=== PATIENT | male | born 1985 | race Caucasian/White ===

== ENCOUNTER → 2016-06-08 | Outpatient (CLI) | payer BC ==
[~2016-06-08] MED LIST: AMX875 PO; CLC150 PO; HYDRELX3 PO
[2016-06-08 14:38] LABS: DAYS OF ABSTINENCE 5; METHOD OF COLLECTION MASTURBATION; SEMEN COLOR GRAY OR GRAY-WHITE (GRY/GRYWHTE); SEMEN TIME OF COLLECTION 1245; TYPE OF SPECIMEN CONTAINER STERILE CUP
[2016-06-08 14:41] LABS: SPERM VIABILITY STAIN NOT INDICATED % (>58%)
--- NOTE | 2016-06-09 09:23 | CODING QUERY NO DIAGNOSIS ---
TREATMENT RENDERED WITHOUT A DIAGNOSIS 85 To promote full compliance with coding requirements relating to patient care, physician participation is requested in all cases of drivability technician uncertainty. Please assist us with providing a diagnosis/symptom for the test(s) below: A diagnosis/symptom was not documented on your Order. A valid diagnosis/symptom is required to bill all insurances. Please remember that we are unable to code a diagnosis of rule out, probable, possible, questionable, or suspected. DOS 06/08/16 Tests that require a diagnosis: * SEMEN ANALYSIS DIAGNOSIS: Provider Signature: Date: Thank you [employer] Once completed, please kindly fax back to [phone] For questions please call [phone]
== END | disposition home or self-care (01) ==
LOC: C.LAB 13:12
PROVIDERS: ATTEND Obstetrics & Gynecology
DX: N46.9 Male infertility, unspecified (principal)